=== PATIENT | female | born 1975 | race Caucasian/White ===

== ENCOUNTER 2019-02-12 19:34 | Emergency (ER) | payer MEDICAID ==
[~2019-02-12] VITALS: Ht 154.9 cm; Wt 66.2 kg
[~2019-02-12 19:34] MED LIST: ESOM40CA PO; FAMO-96 PO; MAG355OR14 PO
[2019-02-12 19:38] VITALS: Ht 154.9 cm; Wt 66.2 kg
[2019-02-12] MEDS ORDERED: FAMOTIDINE 20 MG TAB PO STA (20:10)
[2019-02-12] MEDS ORDERED: BELLADONNA/PHENOBARBITAL TAB PO STA (20:10)
[2019-02-12] MEDS ORDERED: LIDOCAINE/MYLANTA 40 ML BTL PO STA (20:10)
[2019-02-12] MEDS ORDERED: KETOROLAC 30 MG INJ IM STA (20:10)
[2019-02-12 20:51] VITALS: BP 135/89; PULSE 68; RESP 16
== END 2019-02-12 20:52 | disposition home or self-care (01) ==
LOC: E/R 19:34
DX: K21.0 Gastro-esophageal reflux disease with esophagitis (principal)
CPT/HCPCS: 81025; 96372; J1885; Z7502; Z7610